=== PATIENT | female | born 1935 | race Caucasian/White ===

== ENCOUNTER 2019-08-29 14:46 | Outpatient (CLI) | payer MEDICARE, BC, SELFPAY ==
--- NOTE | ~2019-08-29 | XR_ITS ---
EXAMINATION: XR shoulder RT min 2V DATE: 08/29/2019 15:23 INDICATION: Right shoulder pain. TECHNIQUE: 4 views of right shoulder were obtained. COMPARISON: None. FINDINGS: Bone alignment is normal. No fracture. There is mild osteoarthritis of glenohumeral joint a nd acromioclavicular joint. There is mild calcific tendinitis of the right rotator cuff. There is a l arge hiatal hernia. IMPRESSION: 1. Mild polyarticular osteoarthritis. 2. Mild calcific tendinitis of right rotator cuff. Reviewed, dictated and finalized at location A.
--- NOTE | ~2019-08-29 | XR_ITS ---
EXAMINATION: XR_CERV2-3V_CR EXAM DATE: 08/29/2019 15:23 INDICATION: Cervicalgia. TECHNIQUE: Cervical spine frontal, lateral, lateral swimmers, and open-mouth odontoid projections. There is no prior study for comparison. FINDINGS: There is mild to moderate cervical disc disease. There is overall moderate cervical arthro linda with some mid cervical neural foraminal stenosis probably mostly at C5-6 and 6-7. The odontoid process is intact. The lateral masses of C1 line up with C2. Prevertebral soft tissue and pre-dens s pace are within normal limits. The vertebral bodies are aligned in the AP dimension. Lung apices unre markable. IMPRESSION: 1. Moderate cervical arthropathy. 2. Mild to moderate disc disease. Reviewed, dictated and finalized at location A.
== END 2019-08-29 14:47 | disposition home or self-care (01) ==
PROVIDERS: PCP Internal Medicine; Visit Provider Internal Medicine
DX: M19.011 Primary osteoarthritis, right shoulder (principal); M50.320 Other cervical disc degeneration, mid-cervical region, unspecified level
CPT/HCPCS: 72040; 73030

== ENCOUNTER 2019-11-13 14:30 | Outpatient (RCR) | payer MEDICARE, BC, SELFPAY ==
[2019-09-17 14:21] VITALS: BP_SYST 160
--- NOTE | 2019-09-17 15:30 | PTOPEVAL ---
Thank you for referring Arleen Patterson to [facility] [place]. Please review, sign, date and return this plan of care JOHN. Arleen was seen for her initial PT evaluation to address her right shoulder and neck impairments. She demonstrates limitations with motion, strength, pain and performance with daily activities. She requires additional skilled PT 2x/wk x 8 wk to improve impairments. I agree with and certify that the following plan of care is medically necessary. Referring Physician Date Attending Provider: DO Cynthia SidhuPT Outpatient Evaluation Start: 09/17/19 14:22 Freq: Status: Active Protocol: Document 09/17/19 14:21 SHANDA (Rec: 09/17/19 15:00 SHANDA [id number]) Therapy Assessment Status Assessment Status Assessment Status Evaluation Outpatient Past Medical History Past Medical History Source of Past Medical History Patient,Recalled from Previous Visit, Confirmed with Patient /Family Neurological History Hx Neurological Disorders No Significant History Cardiovascular History Hx Hypertension Yes Gastrointestinal History Hx Gastroesophageal Reflux Disease Yes Genitourinary History Hx Genitourinary Disorders No Significant History Musculoskeletal History Hx Back Pain Yes Hx Degenerative Disk Disease Yes Hx Orthopedic Surgery Yes: low back surgery for discectomy 18 years ago, then 2-3 years Evaluation Information Problem Diagnosis neck pain, shoulder pain Onset 06/07 Cause lifting Additional Evaluation Detail x-ray shows OA of cervical and shoulder joint Subjective Information She was having to assist her Query Text:As Reported By Patient/ with transfers more Family causing her to use her UE more . She started to notice the pain after May 2019. She reports difficulty with reaching overhead or behind her back. 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 She denies problems with carrying objects. She is limited with yard due to pain and fatigue. Reports the neck is painful with motions. The pain will wake her at night. States difficulty turning head with driving. She has increased back pain when lying on back. She sleeps on her side.
--- NOTE | 2019-10-03 14:50 | PCPTNOTE ---
Patient did not show up for scheduled appointment this date.
--- NOTE | 2019-10-17 11:00 | PCPTNOTE ---
Patient called & cancelled scheduled appointment this date due to reason unknown.
--- NOTE | 2019-10-29 15:40 | PTOPEVAL ---
Thank you for referring Arleen Patterson to [facility]. Please review, sign, date and return this plan of care JOHN. Pt has received 6 therapy visits to address neck and UE impairments. She is progressing towards her therapy goals with improved pain, improve range, improved strength and decreased soft tissue restrictions. She requires additional PT 1x/wk x 4 wk to achieve maximal benefits. I agree with and certify that the following plan of care is medically necessary. Referring Physician Date Admitting Provider: Attending Provider: Rylan Santamaria DO PT re-evaluation update *PT Outpatient Evaluation Start: 09/17/19 14:22 Freq: Status: Active Protocol: Document 10/29/19 14:49 SHANDA (Rec: 10/29/19 15:07 SHANDA [id number]) Therapy Assessment Status Assessment Status Assessment Status Re-evaluation Evaluation Information Problem Diagnosis neck pain, shoulder pain Onset 06/07 Cause lifting Additional Evaluation Detail x-ray shows OA of cervical and shoulder joint Subjective Information Reports improved ability to Query Text:As Reported By Patient/ turn her head to right, but Family cont restrictions to the left. she has trouble turning her head for driving. She reports improved ability wiith reaching overhead or behind her back. Denies any pain in her UE at this time. She is performing yard work with increased back pain. Pain Assessment Timing of Pain Assessment Timing of Pain Assessment Re-assessment Pain Scale Pain Scale Used Numeric (1 - 10) Self Report Pain Assessment Posterior Neck Reported Pain Level 0 Pain Description Aching,Pulling,Tightness Pain Frequency Intermittent Lowest Pain Intensity 0 Greatest Pain Intensity 6 Pain Aggravating Factors Exercise/Activity,Other Pain Aggravating Factors Other Pain Aggravating Factors neck motions Pain Behaviors Anxious Right Shoulder(s) Reported Pain Level 0 Lowest Pain Intensity 0 Greatest Pain Intensity 0 Pain Score Pain Score 0,0: Self Report Cervical and Lumbar ROM Cervical ROM Cervical Flexion (0-60) 70 Query Text:Active in Degrees Cervical Extension (0-70) 55 Query Text:Active in Degrees Cervical Lateral Flexion Right (0-50) 20 Query Text:Active in Degrees Cervical Lateral Flexion Left (0-50) 20 Query Text:Active in Degrees Cervical Rotation Ri
--- NOTE | 2019-11-19 14:33 | PCPTNOTE ---
Patient called & cancelled scheduled next scheduled appointment due to dentist appointment. She requested not to reschedule a follow up with at this time. Will hold chart open for 2 weeks, then DC if not rescheduled.
--- NOTE | 2019-12-07 12:24 | PCPTNOTE ---
Admitting Provider: Attending Provider: Rylan Santamaria DO Patient:Arleen Patterson Date of :1935 Discharge Note Patient has not returned for any further treatments since 11/13/2019, therefore she will be discharged at this time. Patient?s initial visit was on 09/17/2019 14:15 and she had a total of 8 visits. The goals have been been met due to patient did not return for her reassessment. Thank you for referring this patient to [facility]. Please review, sign, date and return this discharge summary JOHN. I have been updated about the patient's current status and I agree with discharge from the above service at this time. Referring Physician Date
== END 2019-12-07 14:07 | disposition home or self-care (01) ==
LOC: ANHPT 14:30
PROVIDERS: PCP Internal Medicine; Visit Provider Internal Medicine
DX: M54.2 Cervicalgia (principal); M25.511 Pain in right shoulder
CPT/HCPCS: 97014; 97110; 97140; 97162; G0283

== ENCOUNTER 2019-12-20 11:07 | Outpatient (CLI) | payer MEDICARE, BC, SELFPAY ==
[2019-12-20 12:11] LABS: Anion Gap 6 mmol/L (8-16); Blood Urea Nitrogen 27 mg/dL (7-17); Calcium 9.6 mg/dL (8.4-10.2); Carbon Dioxide 27 mmol/L (22-30); Chloride 104 mmol/L (98-107); Estimated Glomerular Filt Rate 53; Glucose 95 mg/dL (65-105); Potassium 4.2 mmol/L (3.4-5.0); Sodium 137 mmol/L (137-145)
[2019-12-20 12:49] LABS: Vitamin D 25 Hydroxy 85.6 ng/mL
== END 2019-12-20 11:08 | disposition home or self-care (01) ==
LOC: ANHLAB 11:09
PROVIDERS: PCP Internal Medicine; Visit Provider Internal Medicine
DX: I10 Essential (primary) hypertension (principal); E55.9 Vitamin D deficiency, unspecified
CPT/HCPCS: 36415; 80048; 82306

== ENCOUNTER 2020-08-27 11:23 | Outpatient (CLI) | payer MEDICARE, BC, SELFPAY ==
[2020-08-27 11:55] LABS: Hematocrit 37.1 % (37.0-47.0); Hemoglobin 11.9 g/dL (12.0-15.0); Mean Corpuscular HGB Conc 32.1 g/dl (32-36); Mean Corpuscular Volume 93.5 fl (80-100); Mean Platelet Volume 11.1 fl (7.4-10.4); Platelet Count Result 274 k/mm3 (150-375); Red Blood Count 3.97 M/mm3 (4.2-5.4); Red Cell Distribution Width 13.7 % (11.5-14.5); White Blood Count 6.9 K/mm3 (4.5-10.0)
[2020-08-27 12:04] LABS: Alanine Aminotransferase 12 U/L (4-35); Albumin Level 4.2 g/dL (3.5-5.1); Alkaline Phosphatase 60 U/L (38-126); Anion Gap 3 mmol/L (8-16); Aspartate Amino Transferase 22 U/L (14-36); Bilirubin,Total 0.4 mg/dL (0.2-1.3); Blood Urea Nitrogen 22 mg/dL (7-17); Calcium 9.5 mg/dL (8.4-10.2); Carbon Dioxide 31 mmol/L (22-30); Chloride 105 mmol/L (98-107); Estimated Glomerular Filt Rate 60; Glucose 98 mg/dL (65-105); Sodium 139 mmol/L (137-145)
== END 2020-08-27 11:24 | disposition home or self-care (01) ==
PROVIDERS: PCP Internal Medicine; Visit Provider Nurse Practitioner
DX: R53.83 Other fatigue (principal); I10 Essential (primary) hypertension
CPT/HCPCS: 36415; 80053; 85027

== ENCOUNTER 2020-12-13 17:41 | Emergency (ER) | payer MEDICARE, BC, SELFPAY ==
[2020-12-13 17:46] VITALS: BP 155/88; PULSE 124; RESP 20; TEMP 36.3; O2SAT 100
--- NOTE | 2020-12-13 18:34 | ED.ALLEREA ---
HPI - Allergic Reaction General Chief complaint: Allergic Reaction Stated complaint: attacked by yellow jackets Time Seen by Provider: 12/13/20 17:58 Source: patient Mode of arrival: ambulatory Limitations: no limitations History of Present Illness HPI narrative: Patient is an 85-year-old female complaining of being stung by multiple yellow jackets while trying to clean underneath her deck. Patient states that wherever she was stung feels like it is burning, my skin is burning . Patient denies any lip, tongue or throat swelling. Patient denies any shortness of breath or chest pain. Patient denies being allergic to bees or wasps. Related Data Allergies Allergy/AdvReac Type Severity Reaction Status Date / Time levofloxacin Allergy Unknown hives Verified 12/13/20 17:51 metronidazole Allergy Unknown rash Verified 12/13/20 17:51 Review of Systems Review of Systems: All systems reviewed & are unremarkable except as noted in HPI and below Constitutional: Constitutional: Denies body ache(s), Denies chills, Denies excessive sweating, Denies fatigue, Denies fever(s), Denies headache(s), Denies lethargy, Denies malaise, Denies weakness and Denies weight loss Eyes: Eyes: Denies blurry vision, Denies change in vision and Denies loss of vision ENT: Denies dizziness, Denies ear discharge, Denies headache(s), Denies lip swelling, Denies epistaxis, Denies nasal congestion, Denies neck pain, Denies throat swelling and Denies tongue swelling Cardiovascular: Cardiovascular: Denies chest pain, Denies chest pain at rest, Denies chest pain with activity, Denies diaphoresis, Denies rapid heart rate, Denies edema, Denies irregular heart rhythm, Denies lightheadedness, Denies palpitations, Denies dyspnea and Denies dyspnea on exertion Respiratory: Respiratory: Denies chest congestion, Denies cough, Denies hemoptysis, Denies dyspnea and Denies dyspnea on exertion Gastrointestinal: Gastrointestinal: Denies abdominal pain, Denies melena, Denies hematochezia, Denies diarrhea, Denies nausea, Denies vomiting and Denies hematemesis Musculoskeletal: Musculoskeletal: Denies abnormal gait, Denies deformity, Denies joint swelling, Denies limited range of motion, Denies neck pain and Denies numbness Neurologic: Denies Abnormal speech present, Denies abnormal gait, Denies confusion, Denies dizziness, Denies headache(s), Denies focal weakness, Denies loss of vision, Denies numbness, Denies Other visual disturbances, Denies Sensory deficit (Neuro) and Denies weakness Psychiatric: Psychiatric: Denies confusion, Denies depression, Denies auditory hallucinations, Denies homicidal ideation and Denies suicidal ideation Endocrine: Endocrine: Denies cold intolerance, Denies excessive sweating, Denies fatigue, Denies heat intolerance and Denies palpitations Hematologic/Lymphatic: Hematologic/Lymphatic: Denies easy bleeding and Denies easy bruising Allergic/Immunologic: Allergic/Immunologic: Denies lip swelling, Denies throat swelling and Denies tongue swelling PMFSH Past Medical History Medical History Chronic low back pain Essential (primary) hypertension Gastroesophageal reflux disease Iron deficiency anemia Vitamin D deficiency Family History Family History Sibling Patient's sister is in good health Family history of alcoholism Family history of chronic obstructive pulmonary disease Patient's brother is Mother Patient's mother is Father Patient's father is Social History Social History Smoking status: Never smoker Alcohol intake: never Exam Const: General: cooperative, healthy appearing, comfortable, no acute distress, well developed, alert and awake; No confusion Orientation/consciousness: oriented to person, oriented to place, orient
[2020-12-13 18:45] VITALS: BP 164/83; PULSE 94; RESP 20; O2SAT 99
[2020-12-13] MEDS: diphenhydrAMINE HCl INJ 50 MG/ML VIAL 25 MG IV PUSH (18:45)
[2020-12-13] MEDS: FAMOTIDINE 20 MG/2 ML VIAL IV PUSH (18:45)
[2020-12-13] MEDS: methylPREDNISolone SOD SUCC 125 MG VIAL 80 MG IV PUSH (18:45)
[2020-12-13 19:16] VITALS: BP 175/88; PULSE 94; RESP 18; O2SAT 99
[2020-12-13] MEDS: HYDROmorphone HCL INJ (*CRX) 1 MG/ML SYR 0.5 MG IV PUSH (19:42)
[2020-12-13] MEDS: HYDROcodone/acetaminophen (*CRX) 5-325 MG TABLET 1 TAB PO (19:44)
[2020-12-13 20:21] VITALS: BP 181/89; PULSE 89; RESP 15; O2SAT 98
[2020-12-13 20:58] VITALS: BP 165/94; PULSE 95; RESP 16; O2SAT 96
== END 2020-12-13 21:00 | disposition home or self-care (01) ==
PROVIDERS: Emergency Provider Emergency Medicine; PCP Internal Medicine
DX: T63.461A Toxic effect of venom of wasps, accidental (unintentional), initial encounter (principal); I10 Essential (primary) hypertension; K21.9 Gastro-esophageal reflux disease without esophagitis; E55.9 Vitamin D deficiency, unspecified; D50.9 Iron deficiency anemia, unspecified
CPT/HCPCS: 96374; 96375; 99284; A9270; J1170; J1200; J2930

== ENCOUNTER 2021-03-03 15:19 | Outpatient (CLI) | payer MEDICARE, BC, SELFPAY ==
[2021-03-03 16:18] LABS: Anion Gap 9 mmol/L (8-16); Blood Urea Nitrogen 22 mg/dL (7-17); Calcium 9.3 mg/dL (8.4-10.2); Carbon Dioxide 26 mmol/L (22-30); Chloride 103 mmol/L (98-107); Estimated Glomerular Filt Rate > 60; Glucose 135 mg/dL (65-110); Potassium 3.9 mmol/L (3.4-5.0); Sodium 138 mmol/L (137-145)
[2021-03-03 16:32] LABS: Vitamin D 25 Hydroxy 43.3 ng/mL
== END 2021-03-03 15:20 | disposition home or self-care (01) ==
LOC: ANHLAB 15:20
PROVIDERS: PCP Internal Medicine; Visit Provider Internal Medicine
DX: E55.9 Vitamin D deficiency, unspecified (principal); R53.83 Other fatigue; I10 Essential (primary) hypertension
CPT/HCPCS: 36415; 80048; 82306; 84443

== ENCOUNTER → 2021-04-17 01:26 | Outpatient (CLI) | payer MEDICARE, BC, SELFPAY ==
[2021-04-17 14:23] LABS: Influenza Control Positive
[2021-04-17 20:43] LABS: SARS-CoV-2 RNA PCR Positive
== END ==
PROVIDERS: PCP Internal Medicine; Visit Provider Internal Medicine
DX: R68.89 Other general symptoms and signs (principal); J06.9 Acute upper respiratory infection, unspecified; U07.1 COVID-19
CPT/HCPCS: 87804; C9803; U0003; U0005

== ENCOUNTER 2021-04-20 11:23 | Outpatient (RCR) | payer MEDICARE, BC, SELFPAY ==
[2021-04-20 14:14] VITALS: BP 183/87; PULSE 104; RESP 24; TEMP 36.1; O2SAT 100
[2021-04-20] MEDS: ACETAMINOPHEN 325 MG TABLET 650 MG PO (14:17)
[2021-04-20] MEDS: diphenhydrAMINE HCl CAP 25 MG CAPSULE PO (14:17)
[2021-04-20] MEDS: FAMOTIDINE 20 MG TABLET PO (14:17)
[2021-04-20 15:43] VITALS: BP 149/64; PULSE 75; O2SAT 100
== END 2021-04-20 17:00 ==
LOC: AMCINF 11:23
PROVIDERS: PCP Internal Medicine; Visit Provider Internal Medicine Hematology & Oncology
DX: U07.1 COVID-19 (principal); I10 Essential (primary) hypertension
CPT/HCPCS: A9270; M0247

== ENCOUNTER 2021-08-11 14:14 | Outpatient (CLI) | payer MEDICARE, BC, SELFPAY ==
--- NOTE | ~2021-08-11 | XR_ITS ---
EXAMINATION:XR_CERV2-3V_CR DATE: 08/11/2021 14:37 INDICATION: Right-sided neck pain TECHNIQUE: AP, lateral, and odontoid views of the cervical spine are provided. COMPARISON: 08/29/2019 FINDINGS: Alignment is normal. The odontoid is intact. No fracture is identified. The vertebral body heights are normal. There is mild loss of intervertebral disc space height at C4-5 and C5-6. There is severe facet osteoarthritis throughout the cervical spine and moderate uncovertebral joint osteoarth ritis at C5-6 and C6-7. Prevertebral soft tissues are normal. IMPRESSION: 1. Moderate cervical spondylosis without acute findings or significant interval change. Reviewed, dictated and finalized at location F.
== END 2021-08-11 14:15 | disposition home or self-care (01) ==
LOC: ANHIMG 14:17
PROVIDERS: PCP Internal Medicine; Visit Provider Nurse Practitioner
DX: M54.2 Cervicalgia (principal); M47.812 Spondylosis without myelopathy or radiculopathy, cervical region
CPT/HCPCS: 72040

== ENCOUNTER 2022-03-10 09:24 | Outpatient (CLI) | payer MEDICARE, BC, SELFPAY ==
[2022-03-10 09:57] LABS: Anion Gap 11 mmol/L (8-16); Blood Urea Nitrogen 23 mg/dL (7-17); Calcium 9.2 mg/dL (8.4-10.2); Carbon Dioxide 23 mmol/L (22-30); Chloride 107 mmol/L (98-107); Estimated Glomerular Filt Rate 59; Glucose 110 mg/dL (65-110); Potassium 3.8 mmol/L (3.4-5.0); Sodium 141 mmol/L (137-145)
[2022-03-10 10:14] LABS: Vitamin D 25 Hydroxy 44.9 ng/mL
== END 2022-03-10 09:25 | disposition home or self-care (01) ==
LOC: ANHLAB 09:26
PROVIDERS: PCP Internal Medicine; Visit Provider Internal Medicine
DX: E55.9 Vitamin D deficiency, unspecified (principal); I10 Essential (primary) hypertension
CPT/HCPCS: 36415; 80048; 82306

== ENCOUNTER 2022-04-18 10:13 | Emergency (ER) | payer MEDICARE, BC, SELFPAY ==
[2022-04-18 10:39] VITALS: BP 156/75; PULSE 88; RESP 16; TEMP 36.2; O2SAT 98
--- NOTE | 2022-04-18 11:16 | ED.EAR ---
HPI - Ear Problem General Chief complaint: Ear Stated complaint: Right Ear Irritation Time Seen by Provider: 04/18/22 11:16 Source: patient, RN notes reviewed and old records reviewed Mode of arrival: ambulatory Limitations: no limitations History of Present Illness HPI Narrative: 86-year-old female presents to the [facility] with right ear discomfort for 1 week. Patient states since Thanksgiving over a month she has had upper respiratory congestion. First week in March was treated with a steroid, nasal spray and an antibiotic for an ear infection, same ear as today. Denies any fevers. States when she changes positions quickly she sometimes has some dizziness but no is syncopal episodes. States that she has been using her Flonase daily Related Data Allergies Allergy/AdvReac Type Severity Reaction Status Date / Time levofloxacin Allergy Unknown hives Verified 04/18/22 10:46 metronidazole Allergy Unknown rash Verified 04/18/22 10:46 Review of Systems Review of Systems: All systems reviewed & are unremarkable except as noted in HPI and below Constitutional: Constitutional: Reports no additional constitutional complaints Eyes: Eyes: Reports no additional eye complaints ENT: Reports as per HPI, Reports otalgia (right) and Reports nasal congestion Cardiovascular: Cardiovascular: Reports no additional cardiovascular complaints, Denies chest pain and Denies dyspnea Respiratory: Respiratory: Reports no additional respiratory complaints, Denies chest congestion, Denies cough and Denies dyspnea Gastrointestinal: Gastrointestinal: Reports no additional gastrointestinal complaints, Denies abdominal pain, Denies nausea and Denies vomiting Musculoskeletal: Musculoskeletal: Reports no additional musculoskeletal complaints Integumentary/Breasts: Skin/Breast: Reports system reviewed and no additional complaints, except as docu Neurologic: Reports system reviewed and no additional complaints, except as documented Psychiatric: Psychiatric: Reports no additional psychiatric complaints Allergic/Immunologic: Allergic/Immunologic: Reports no additional allergic/immunologic complaints [facility] Past Medical History Medical History Chronic low back pain Essential (primary) hypertension Gastroesophageal reflux disease Iron deficiency anemia Vitamin D deficiency Family History Family History Sibling Patient's sister is in good health Family history of alcoholism Family history of chronic obstructive pulmonary disease Patient's brother is Mother Patient's mother is Father Patient's father is Social History Social History Smoking status: Never smoker Second hand tobacco smoke exposure: No Alcohol intake: never Substance use: never Substance use type: does not use Lack of Transportation: No Lack of Food: Never True Current Housing: I Have Housing Concerned About Future Housing: No Difficulty Paying Gas/Electric Bills: No Difficulty Paying for Meds: No Currently Unemployed: No Education: Trade/Vocational Certificate Difficulty w/ Childcare or Family Care: No Comments At the time of my signature, I reviewed and agree with the nursing past medical, surgical, social, and family history. There is no relevant family history pertinent to the patient complaint. Exam Const: General: cooperative, healthy appearing, comfortable, no acute distress, well developed, alert and well nourished Nutritional Appearance: well nourished Orientation/consciousness: patient oriented x3 Limitations: no limitations HENMT: Head: normal to inspection Ears: hearing grossly normal bilaterally, external ears normal, EAC's normal and TM abnormal bulging on the right and erythematous on the right Face/Nose/Sinus: Normal e
== END 2022-04-18 11:40 | disposition home or self-care (01) ==
PROVIDERS: Emergency Provider Nurse Practitioner; PCP Internal Medicine
DX: H66.91 Otitis media, unspecified, right ear (principal); I10 Essential (primary) hypertension; K21.9 Gastro-esophageal reflux disease without esophagitis
CPT/HCPCS: 99213; G0463

== ENCOUNTER 2022-05-10 13:50 | Emergency (ER) | payer MEDICARE, BC, SELFPAY ==
--- NOTE | 2022-05-10 13:53 | ED.FEMALEGU ---
HPI - Female Genitourinary General Chief complaint: Urogenital-Female Stated complaint: UTI/ Ears Irritation Time Seen by Provider: 05/10/22 14:07 Source: patient, RN notes reviewed and old records reviewed Mode of arrival: ambulatory Limitations: no limitations History of Present Illness HPI Narrative: 86-year-old female presents to the [facility] with complaints of right ear pain that has continued since she was seen on the . Also complains of burning, urgency and frequency of urination. States this started a couple of days ago. Denies chest pain or abdominal pain. No nausea vomiting. Denies fevers MD elicited complaint: UTI Related Data Allergies Allergy/AdvReac Type Severity Reaction Status Date / Time levofloxacin Allergy Unknown hives Verified 05/10/22 13:57 metronidazole Allergy Unknown rash Verified 05/10/22 13:57 Review of Systems Review of Systems: All systems reviewed & are unremarkable except as noted in HPI and below Constitutional: Constitutional: Reports no additional constitutional complaints Eyes: Eyes: Reports no additional eye complaints ENT: Reports as per HPI Cardiovascular: Cardiovascular: Reports no additional cardiovascular complaints, Denies chest pain and Denies dyspnea Respiratory: Respiratory: Reports no additional respiratory complaints, Denies chest congestion, Denies cough and Denies dyspnea Gastrointestinal: Gastrointestinal: Reports no additional gastrointestinal complaints, Denies abdominal pain, Denies nausea and Denies vomiting Genitourinary: Genitourinary: Reports as per HPI and Reports dysuria Musculoskeletal: Musculoskeletal: Reports no additional musculoskeletal complaints Integumentary/Breasts: Skin/Breast: Reports system reviewed and no additional complaints, except as docu Neurologic: Reports system reviewed and no additional complaints, except as documented Psychiatric: Psychiatric: Reports no additional psychiatric complaints Allergic/Immunologic: Allergic/Immunologic: Reports no additional allergic/immunologic complaints [facility] Past Medical History Medical History Chronic low back pain Essential (primary) hypertension Gastroesophageal reflux disease Iron deficiency anemia Vitamin D deficiency Family History Family History Sibling Patient's sister is in good health Family history of alcoholism Family history of chronic obstructive pulmonary disease Patient's brother is Mother Patient's mother is Father Patient's father is Social History Social History (Reviewed 01/24/23 @ 10:09 by ABDELRAHMAN Bowden Smoking status: Never smoker Second hand tobacco smoke exposure: No Alcohol intake: never Substance use: never Substance use type: does not use Lack of Transportation: No Lack of Food: Never True Current Housing: I Have Housing Concerned About Future Housing: No Difficulty Paying Gas/Electric Bills: No Difficulty Paying for Meds: No Currently Unemployed: No Education: Trade/Vocational Certificate Difficulty w/ Childcare or Family Care: No Comments At the time of my signature, I reviewed and agree with the nursing past medical, surgical, social, and family history. There is no relevant family history pertinent to the patient complaint. Exam Const: General: cooperative, healthy appearing, comfortable, no acute distress, well developed, alert and well nourished Nutritional Appearance: well nourished Orientation/consciousness: patient oriented x3 Limitations: no limitations HENMT: Head: normal to inspection Ears: hearing grossly normal bilaterally, external ears normal and TM abnormal with fluid behind the TM bilateral; not erythematous Face/Nose/Sinus: Normal external nose present, Normal nares present, Normal nasal mucous membranes and turbinates present and n
[2022-05-10 14:08] VITALS: BP 157/93; PULSE 107; RESP 16; TEMP 36.2; O2SAT 99
== END 2022-05-10 14:34 | disposition home or self-care (01) ==
PROVIDERS: Emergency Provider Nurse Practitioner; PCP Internal Medicine
DX: N39.0 Urinary tract infection, site not specified (principal); H65.03 Acute serous otitis media, bilateral; I10 Essential (primary) hypertension; K21.9 Gastro-esophageal reflux disease without esophagitis
CPT/HCPCS: 81003; 87077; 87086; 87186; 99213; G0463

== ENCOUNTER 2022-07-19 09:48 | Outpatient (CLI) | payer MEDICARE, BC, SELFPAY ==
[2022-07-19 10:25] LABS: Basophils Absolute Auto 0.1 K/mm3 (0.0-0.1); Basophils Percent Auto 1.3 % (0.2-1.2); Eosinophils Absolute Auto 0.2 K/mm3 (0-0.3); Eosinophils Percent Auto 2.5 % (0-4.4); Hematocrit 41.2 % (37.0-47.0); Hemoglobin 13.1 g/dL (12.0-15.0); Immature Granulocyte Absolute 0.02 K/mm3 (0.00-0.031); Immature Granulocyte Percent A 0.3 % (0-0.5); Lymphocytes Absolute Auto 2.13 K/mm3 (0.9-3.2); Lymphocytes Percent Auto 33.4 % (18.3-44.2); Mean Corpuscular HGB Conc 31.8 g/dl (32-36); Mean Corpuscular Hemoglobin 31.1 pg (26-34); Mean Corpuscular Volume 97.9 fl (80-100); Mean Platelet Volume 10.6 fl (7.4-10.4); Monocytes Absolute Auto 0.6 K/mm3 (0.1-0.6); Monocytes Percent Auto 8.8 % (2.6-8.5); Neutrophils Absolute Auto 3.4 K/mm3 (1.3-6.7); Neutrophils Percent Auto 53.7 % (45.5-73.1); Platelet Count Result 252 k/mm3 (150-375); Red Blood Count 4.21 M/mm3 (4.2-5.4); Red Cell Distribution Width 14.1 % (11.5-14.5); White Blood Count 6.4 K/mm3 (4.5-10.0)
[2022-07-19 10:36] LABS: Alanine Aminotransferase 18 U/L (6-35); Albumin Level 4.4 g/dL (3.5-5.1); Alkaline Phosphatase 61 U/L (38-126); Anion Gap 5 mmol/L (8-16); Aspartate Amino Transferase 22 U/L (14-36); Bilirubin,Total 0.5 mg/dL (0.2-1.3); Blood Urea Nitrogen 17 mg/dL (7-17); Calcium 9.3 mg/dL (8.4-10.2); Carbon Dioxide 30 mmol/L (22-30); Chloride 107 mmol/L (98-107); Estimated Glomerular Filt Rate 59; Glucose 104 mg/dL (65-110); Potassium 4.1 mmol/L (3.4-5.0); Sodium 142 mmol/L (137-145)
[2022-07-19 10:49] LABS: NT Pro B Type Natriuretic Pept 420 pg/mL (19.9-100)
== END 2022-07-19 09:49 | disposition home or self-care (01) ==
PROVIDERS: PCP Internal Medicine; Visit Provider Nurse Practitioner Family
DX: R06.02 Shortness of breath (principal); I10 Essential (primary) hypertension; R53.83 Other fatigue
CPT/HCPCS: 36415; 80053; 83880; 84443; 85025

== ENCOUNTER 2022-08-06 12:39 | Outpatient (CLI) | payer MEDICARE, BC, SELFPAY ==
--- NOTE | ~2022-08-06 | XR_ITS ---
XR chest 2V 08/06/2022 14:05 Indication: Shortness of breath Procedure: 2 view chest Comparison: 08/06/2012 Findings: Large hiatal hernia. Cardiomegaly. No focal air space disease, pulmonary edema, pleural eff usion or suspected pneumothorax. Impression: 1: No acute cardiopulmonary disease. 2: Large hiatal hernia. Reviewed, dictated and finalized at location A. Impression: 1: No acute cardiopulmonary disease. 2: Large hiatal hernia.
--- NOTE | 2022-08-09 13:01 | P.PCNPFT_ITS ---
PFT Procedure Performed PFT Procedure Performed Spirometry with Pre/Post Bronchodilator Plethysmography (Lung Vol) Diffusing Cap (DLCO) Flow Vol Loop PFT Interpretation This is a pulmonary function test with pre and post-bronchodilator spirometry, plethysmography and diffusing capacity. The test was performed and results interpreted in accordance with the 2019 and 2005 ATS/ERS Task Force guidelines respectively using the Global Lung Function Initiative-2012 reference equations. Patient demonstrated good effort and cooperation. Reproducibility criteria were met. The quality of the pre bronchodilator spirometry maneuver was Grade A and post bronchodilator spirometry maneuver was Grade A. Findings: Spirometry: There is decreased maximal expiratory airflow at low lung volumes. The contour the inspiratory flow tracing is normal. The pre bronchodilator FVC is 1.33 L, 59% predicted. The pre bronchodilator FEV1 is 0.89 L, 52% predicted. The pre bronchodilator FEV1: FVC ratio is 67%. The post bronchodilator FVC is 1.30 L, representing a 2% decrease. The post bronchodilator FEV1 is 0.94 L, r epresenting a 5% increase. The post bronchodilator FEV1: FVC ratio 72%. Plethysmography: The total lung capacity is 3.35 L, 71% predicted. Functional residual capacity is 2.44 L, 90% predicted. The residual volume is 2.02 L, 86% predicted. Diffusion capacity: The diffusing capacity unadjusted for hemoglobin and carboxyhemoglobin stent 10.2, 56% predicted. The diffusing capacity adjusted for alveolar volume is 4.64, 112% predicted. Impression: There is a combined obstructive and restrictive ventilatory abnormality. There are no guidelines to assign the severity of obstruction and restriction with a combined abnormality. In my opinion, given the moderately concave expiratory flow tracing and mildly decreased FEV1: FVC ratio and mild restrictive abnormality I would state there is a moderate obstructive abnormality and a mild restrictive abnormality resulting in a moderately severe decreased in the FEV1. There is no significant improvement after inhaling a single dose of albuterol. The diffusing capacity unadjusted for hemoglobin and carboxyhemoglobin is moderately decreased and normalizes when adjusted for alveolar volume. There are no prior studies for comparison
== END 2022-08-06 12:40 | disposition home or self-care (01) ==
PROVIDERS: PCP Family Medicine; Visit Provider Nurse Practitioner Family
DX: R06.02 Shortness of breath (principal); R94.2 Abnormal results of pulmonary function studies; K44.9 Diaphragmatic hernia without obstruction or gangrene
CPT/HCPCS: 71046; 94060; 94726; 94729

== ENCOUNTER 2022-10-03 19:51 | Emergency (ER) | payer MEDICARE, BC, SELFPAY ==
[2022-10-03] VITALS (8 sets, daily range): BP systolic 168–227; BP diastolic 65–99; PULSE 96–122; RESP 17–22; TEMP 36.4; O2SAT 91–99
--- NOTE | ~2022-10-03 | CT_ITS ---
CT of the Abdomen and Pelvis: Indication: Abdominal pain Technique: 2.5 mm axial scans were obtained through the abdomen and pelvis following intravenous adm inistration of 100 cc of Omnipaque 350. Dose reduction technique was used on this scan by utilizing a utomated exposure control and iterative reconstruction technique. The dose-length product (DLP) was 3 26.65 mGy-cm. COMPARISON: 09/17/2015 Findings: Scans through the lung bases demonstrate large hiatal hernia, containing essentially the e ntire stomach, with organoaxial volvulus. The liver, spleen, pancreas, gallbladder, and kidneys are within normal limits. Bilateral adrenal nod ules are similar to prior exam. There are atherosclerotic calcifications of the aorta. No lymphadeno linda. No bowel obstruction or bowel wall thickening. There is no evidence to suggest acute appendicitis. Images through the pelvis were performed. Urinary bladder unremarkable. No adnexal mass evident. No a scites. Impression: Large hiatal hernia containing the entire stomach, with organoaxial volvulus. Stable adrenal nodule since 2015. Stability over this time interval is compatible with benignity. Reviewed, dictated and finalized at location . Impression: Large hiatal hernia containing the entire stomach, with organoaxial volvulus. Stable adrenal nodule since 2015. Stability over this time interval is compatib le with benignity.
--- NOTE | 2022-10-03 20:05 | ECG_ITS ---
Measurements Intervals [place] Rate: 112 P: 42 CT: 150 QRS: -30 QRSD: 97 T: 99 QT: 310 QTc: 425 Interpretive Statements SINUS TACHYCARDIA LEFT ATRIAL ENLARGEMENT [-0.15mV P WAVE IN V1/V2] POSSIBLE LEFT VENTRICULAR HYPERTROPHY [VOLTAGE CRITERIA PLUS LAE OR QRS WIDENING] INFERIOR MYOCARDIAL INFARCTION , PROBABLY OLD [40+ ms Q WAVE AND/OR ST/T ABNORMALITY IN II/aVF] ABNORMAL ECG NO PREVIOUS ECG AVAILABLE FOR COMPARISON Electronically Signed On 10-04-2022 15:44:44 CDT by Sebastian Jesus M.D.
[2022-10-03 20:50] LABS: Basophils Absolute Auto 0.1 K/mm3 (0.0-0.1); Basophils Percent Auto 0.7 % (0.2-1.2); Eosinophils Absolute Auto 0.1 K/mm3 (0-0.3); Eosinophils Percent Auto 1.1 % (0-4.4); Hematocrit 40.4 % (37.0-47.0); Immature Granulocyte Absolute 0.03 K/mm3 (0.00-0.031); Immature Granulocyte Percent A 0.3 % (0-0.5); Lymphocytes Percent Auto 18.9 % (18.3-44.2); Mean Corpuscular HGB Conc 32.2 g/dl (32-36); Mean Corpuscular Volume 96.4 fl (80-100); Mean Platelet Volume 10.3 fl (7.4-10.4); Monocytes Absolute Auto 0.6 K/mm3 (0.1-0.6); Monocytes Percent Auto 6.6 % (2.6-8.5); Neutrophils Absolute Auto 6.5 K/mm3 (1.3-6.7); Neutrophils Percent Auto 72.4 % (45.5-73.1); Platelet Count Result 261 k/mm3 (150-375); Red Blood Count 4.19 M/mm3 (4.2-5.4); Red Cell Distribution Width 14.3 % (11.5-14.5)
[2022-10-03] MEDS: ONDANSETRON INJ 4 MG/2 ML VIAL IV PUSH (21:03)
[2022-10-03 21:15] LABS: Alanine Aminotransferase 18 U/L (6-35); Albumin Level 4.4 g/dL (3.5-5.1); Alkaline Phosphatase 83 U/L (38-126); Anion Gap 5 mmol/L (8-16); Aspartate Amino Transferase 25 U/L (14-36); Blood Urea Nitrogen 21 mg/dL (7-17); Calcium 9.5 mg/dL (8.4-10.2); Carbon Dioxide 32 mmol/L (22-30); Chloride 104 mmol/L (98-107); Estimated CRCL calculation 40 ml/min; Estimated Glomerular Filt Rate > 60; Glucose 131 mg/dL (65-110); Lipase 168 U/L (23-300); Potassium 3.8 mmol/L (3.4-5.0); Sodium 141 mmol/L (137-145)
[2022-10-03 21:19] LABS: Bilirubin,Total 0.4 mg/dL (0.2-1.3)
[2022-10-03 21:37] LABS: Appearance Urine Clear (Clear); Bacteria Urine None Seen /hpf; Bilirubin Urine Negative (Negative); Blood Urine Negative (Negative); Color Urine Yellow (Yellow); Glucose Urine UA Negative (Negative); Ketones Urine Negative (Negative); Leukocyte Esterase Ur Negative LEU/UL (Negative); Nitrate Urine Negative (Negative); Non Pathogenic Casts 0-2; Protein Urine Trace mg/dL (Negative); RBC Urine 0-2 /hpf (0-2); Specific Grav Ur 1.013 (1.001-1.035); Squamous Epithelial Cell Urine None seen /hpf (Few); Urobilinogen Urine 0.2 mg/dL (<2.0); WBC Urine 0-5 /hpf; pH Urine 7.5 (5.0-9.0)
[2022-10-03 21:41] LABS: Add Urine Microscopic? YES
[2022-10-03] MEDS: BELLADONNA ALK/PHENOB ELIX 10 ML, MAG HYDROX/ALUMINUM HYD/SIMETH 30 ML, LIDOCAINE HCL 2... PO (22:07)
--- NOTE | 2022-10-03 22:16 | ED.ABDPAIN ---
HPI - Abdominal Pain General Chief Complaint: Abdominal Pain <Sal Walsh MD - Last Filed: 10/03/22 22:26> Stated Complaint: abd pain <Sal Walsh MD - Last Filed: 10/03/22 22:26> Time Seen by Provider: 10/03/22 20:24 <Sal Walsh MD - Last Filed: 10/03/22 22:26> History of Present Illness HPI narrative: 87-year-old female presented to the emergency department for evaluation of nausea vomiting and epigastric burning. <Sal Walsh MD - Last Filed: 10/03/22 22:26> Related Data Allergies/Adverse Reactions: Allergies Allergy/AdvReac Type Severity Reaction Status Date / Time levofloxacin Allergy Unknown hives Verified 10/03/22 20:01 metronidazole Allergy Unknown rash Verified 10/03/22 20:01 <Sal Walsh MD - Last Filed: 10/03/22 22:26> Review of Systems Review of Systems: All systems reviewed & are unremarkable except as noted in HPI and below <Sal Walsh MD - Last Filed: 10/03/22 22:26> [facility] Past Medical History Medical History: Medical History Chronic low back pain Essential (primary) hypertension Gastroesophageal reflux disease Iron deficiency anemia Vitamin D deficiency <Sal Walsh MD - Last Filed: 10/03/22 22:26> Family History Family History: Family History Sibling Patient's sister is in good health Family history of alcoholism Family history of chronic obstructive pulmonary disease Patient's brother is Mother Patient's mother is Father Patient's father is <Sal Walsh MD - Last Filed: 10/03/22 22:26> Social History Social History: Social History Smoking status: Never smoker Second hand tobacco smoke exposure: No Alcohol intake: never Substance use: never Substance use type: does not use Lack of Transportation: No Lack of Food: Never True Current Housing: I Have Housing Concerned About Future Housing: No Difficulty Paying Gas/Electric Bills: No Difficulty Paying for Meds: No Currently Unemployed: No Education: Trade/Vocational Certificate Difficulty w/ Childcare or Family Care: No <Sal Walsh MD - Last Filed: 10/03/22 22:26> Exam Narrative: APPEARANCE: Well appearing, no pain, no distress, well-nourished. HEAD: normocephalic, atraumatic. EYES: PERRLA/EOMI, conjunctivae clear. NOSE: Normal no drainage EARS:TMS clear with good light reflex. THROAT: Pharynx clear, no exudate. NECK: Supple. No adenopathy, no masses. RESPIRATORY: Airway patent, respirations nonlabored. Clear to auscultation bilaterally, no rales, rhonchi, wheezing. CARDIOVASCULAR: Regular rate and rhythm without murmurs rubs or gallops. ABDOMINAL: Soft, nontender, nondistended, normal bowel sounds MUSCULOSKELETAL: Moves all extremities. Strength/ROM intact, No edema, No calf tenderness. NEURO: Alert. Cranial nerves II through XII intact. Grossly intact <Sal Walsh MD - Last Filed: 10/03/22 22:26> Course Course Emergency Course: 87-year-old female presented emergency department for evaluation of epigastric burning after nausea vomiting. Patient was treated with a GI cocktail and Zofran. Patient is afebrile with no leukocytosis. Patient's CMP is no significant abnormalities and patient has normal AST ALT T. bili and alk phos. Patient's lipase is also not elevated. Patient's UA shows no evidence of infection. Patient had a CT scan to evaluate for alternate etiologies than gastroenteritis. At time of signout CT scan was pending. Patient was updated on the results of the work-up so far and anticipated disposition pending the CT scan result. All questions and concerns were addressed. Patient care was signed out to Dr. Najera <Sal Walsh MD - Last Filed: 10/03/22 22:26>
[2022-10-04] VITALS (43 sets, daily range): BP systolic 146–199; BP diastolic 50–96; PULSE 65–107; RESP 13–31; O2SAT 91–100
--- NOTE | 2022-10-04 03:45 | PC.NURSE ---
Spoke with Golden at [facility] transfer center for triage. Pt accepted to [facility]. Will call back with bed assignment.
--- NOTE | 2022-10-04 07:20 | PC.NURSE ---
Patient report received from NAT Eaton. All questions answered and care of patient assumed.
== END 2022-10-04 08:47 | disposition short-term general hospital (02) ==
PROVIDERS: Emergency Provider Emergency Medicine; PCP Family Medicine
DX: K31.89 Other diseases of stomach and duodenum (principal); K20.90 Esophagitis, unspecified without bleeding; R11.2 Nausea with vomiting, unspecified; I10 Essential (primary) hypertension; K21.9 Gastro-esophageal reflux disease without esophagitis; E55.9 Vitamin D deficiency, unspecified; D50.9 Iron deficiency anemia, unspecified; R94.31 Abnormal electrocardiogram [ECG] [EKG]; R00.0 Tachycardia, unspecified; K44.9 Diaphragmatic hernia without obstruction or gangrene; E27.8 Other specified disorders of adrenal gland
CPT/HCPCS: 36415; 74177; 80053; 81001; 83605; 83690; 85025; 93005; 96365; 96375; 99285; A9270; J0131; J2405; Q9967

== ENCOUNTER 2022-11-29 16:45 | Emergency (ER) | payer MEDICARE, BC, SELFPAY ==
[2022-11-29 16:56] VITALS: BP 153/73; PULSE 100; RESP 18; TEMP 36.6; O2SAT 99
--- NOTE | 2022-11-29 17:07 | ED.GENADULT ---
HPI - General Adult General Chief complaint: Extremity Injury, Upper Stated complaint: Right Arm Injury Time Seen by Provider: 11/29/22 17:07 Source: patient Mode of arrival: ambulatory Limitations: no limitations History of Present Illness HPI narrative: 87-year-old female presents for complaint of right forearm skin tear after injury 6 days ago. She states she fell in the garage and scraped the arm. Has been cleansing the site and applying neosporin and covering it with a bandaid. Reports the site is starting to hurt and has more redness. Denies numbness, tingling, weakness, or fever. Related Data Allergies Allergy/AdvReac Type Severity Reaction Status Date / Time levofloxacin Allergy Unknown hives Verified 10/20/22 12:15 metronidazole Allergy Unknown rash Verified 10/20/22 12:15 Review of Systems Review of Systems: CONSTITUTIONAL: Denies body aches, fever, chills, or sweats. EYES: Denies visual changes, redness, or discharge. ENT: Denies rhinorrhea, congestion CARDIOVASCULAR: Denies chest pain, palpitations, or edema. RESPIRATORY: Denies cough or dyspnea. GASTROINTESTINAL: Denies abdominal pain, nausea, vomiting, or diarrhea. SKIN: per HPI MUSCULOSKELETAL: Denies back pain, joint pain, or myalgia. NEUROLOGIC: Denies headache, numbness, tingling, or weakness. [facility] Past Medical History Medical History (Updated 11/29/22 @ 17:18 by Bertha Arriola APRN) Chronic low back pain Essential (primary) hypertension Gastroesophageal reflux disease Hiatal hernia Iron deficiency anemia Vitamin D deficiency Family History Family History Sibling Patient's sister is in good health Family history of alcoholism Family history of chronic obstructive pulmonary disease Patient's brother is Mother Patient's mother is Father Patient's father is Social History Social History Smoking status: Never smoker Second hand tobacco smoke exposure: No Alcohol intake: never Substance use: never Substance use type: does not use Lack of Transportation: No Lack of Food: Never True Current Housing: I Have Housing Concerned About Future Housing: No Difficulty Paying Gas/Electric Bills: No Difficulty Paying for Meds: No Currently Unemployed: No Education: Trade/Vocational Certificate Difficulty w/ Childcare or Family Care: No Comments At time of signature, I have reviewed and agree with nursing past medical, surgical, social and family history unless otherwise noted. Please see nursing chart for further information. There is no relevant family history pertinent to the presenting complaint Exam Narrative: GENERAL: Well-appearing HEAD: Normocephalic, atraumatic. EYES: conjunctivae clear, and EOMI. ENT: Mucous membranes moist. Oropharynx without edema, erythema or lesions. NECK: Supple. No lymphadenopathy CHEST: Clear to auscultation. HEART: Regular rate and rhythm. SKIN: Warm, dry. Right forearm dorsal surface with 4 cm x 2 cm skin avulsion, skin is dry/scabbed with yellow and pink wound bed, surrounding erythema. Site is tender. No streaking, fluctuance or induration. Normal strength and sensation, full ROM. Right anterior knee abrasion; left medial knee contusion. NEURO: Alert and oriented x3. Course Course Emergency Course: Patient is aware of diagnosis, understands and agrees to treatment plan. Anticipatory guidance given. Patient agrees to follow-up as directed and is aware of reasons to seek care at the emergency department. Portions of this record may have been created with voice recognition software Level of Care: Express Care Visit Vital Signs Vital signs: Vital Signs Temperature 97.9 F 11/29/22 16:56 Pulse Rate 100 11/29/22 16:56 Respiratory Rate 18 11/29/22 16:56 Blood Pressure 153/73 H 08
== END 2022-11-29 17:21 | disposition home or self-care (01) ==
PROVIDERS: Emergency Provider Nurse Practitioner Family; PCP Nurse Practitioner
DX: S51.801A Unspecified open wound of right forearm, initial encounter (principal); W19.XXXA Unspecified fall, initial encounter; I10 Essential (primary) hypertension; K21.9 Gastro-esophageal reflux disease without esophagitis
CPT/HCPCS: 99213; G0463

== ENCOUNTER 2023-06-10 13:45 | Outpatient (CLI) | payer MEDICARE, BC, SELFPAY ==
[2023-06-10 15:12] LABS: Alanine Aminotransferase 17 U/L (6-35); Albumin Level 4.3 g/dL (3.5-5.1); Alkaline Phosphatase 75 U/L (38-126); Anion Gap 10 mmol/L (8-16); Aspartate Amino Transferase 23 U/L (14-36); Bilirubin,Total 0.5 mg/dL (0.2-1.3); Blood Urea Nitrogen 27 mg/dL (7-17); Calcium 9.7 mg/dL (8.4-10.2); Carbon Dioxide 25 mmol/L (22-30); Chloride 104 mmol/L (98-107); Estimated Glomerular Filt Rate 47; Glucose 123 mg/dL (65-110); Potassium 4.3 mmol/L (3.4-5.0); Sodium 139 mmol/L (137-145)
[2023-06-10 18:15] LABS: Vitamin D 25 Hydroxy 34.3 ng/mL
== END 2023-06-10 13:46 | disposition home or self-care (01) ==
PROVIDERS: PCP Nurse Practitioner; Visit Provider Nurse Practitioner
DX: I10 Essential (primary) hypertension (principal); E55.9 Vitamin D deficiency, unspecified
CPT/HCPCS: 36415; 80053; 82306

== ENCOUNTER 2023-10-26 09:04 | Outpatient (CLI) | payer MEDICARE, BC, SELFPAY ==
[2023-10-26 09:46] LABS: Hematocrit 38.9 % (37.0-47.0); Hemoglobin 12.6 g/dL (12.0-15.0); Mean Corpuscular HGB Conc 32.4 g/dl (32-36); Mean Corpuscular Hemoglobin 31.2 pg (26-34); Mean Corpuscular Volume 96.3 fl (80-100); Mean Platelet Volume 10.8 fl (7.4-10.4); Platelet Count Result 233 k/mm3 (150-375); Red Blood Count 4.04 M/mm3 (4.2-5.4); Red Cell Distribution Width 13.5 % (11.5-14.5); White Blood Count 6.1 K/mm3 (4.5-10.0)
[2023-10-26 10:41] LABS: Vitamin D 25 Hydroxy 54.1 ng/mL
[2023-10-26 10:49] LABS: Alanine Aminotransferase 14 U/L (6-35); Albumin Level 4.4 g/dL (3.5-5.1); Alkaline Phosphatase 69 U/L (38-126); Anion Gap 8 mmol/L (4-12); Aspartate Amino Transferase 22 U/L (14-36); Bilirubin,Total 0.5 mg/dL (0.2-1.3); Blood Urea Nitrogen 28 mg/dL (7-17); Calcium 9.6 mg/dL (8.4-10.2); Carbon Dioxide 27 mmol/L (22-30); Chloride 104 mmol/L (98-107); Estimated Glomerular Filt Rate 42; Glucose 104 mg/dL (65-110); Potassium 4.4 mmol/L (3.4-5.0); Sodium 139 mmol/L (137-145)
[2023-10-26 11:15] LABS: Thyroid Stimulating Hormone 0.143 uIU/mL (0.465-4.680)
== END 2023-10-26 09:05 | disposition home or self-care (01) ==
PROVIDERS: PCP Nurse Practitioner; Visit Provider Nurse Practitioner
DX: E55.9 Vitamin D deficiency, unspecified (principal); I10 Essential (primary) hypertension; Z79.899 Other long term (current) drug therapy
CPT/HCPCS: 36415; 80053; 82306; 84443; 85027

== ENCOUNTER 2024-04-07 14:31 | Emergency (ER) | payer MEDICARE, BC, SELFPAY ==
[2024-04-07 14:50] VITALS: BP 150/73; PULSE 98; RESP 18; TEMP 36.6; O2SAT 100
--- NOTE | 2024-04-07 15:02 | ED.URI ---
HPI - URI/Sore Throat General Chief Complaint: Upper Respiratory Infection Stated Complaint: Sinus/Headache Time Seen by Provider: 04/07/24 15:02 Source: patient Mode of arrival: ambulatory Limitations: no limitations History of Present Illness HPI Narrative: 88 yo F presents with c/o sinus and nasal congestion, sinus headaches and pressure, PND, irritated throat and sneezing for 2 wks. Concerned for sinus infection. Afebrile. No CP or SOB. All systems reviewed and negative except as noted above. Related Data Home Medications ?Medication ?Instructions ?Recorded ?Confirmed ?Last Taken ?Type brimonidine 0.2 %-timolol 0.5 % drp 04/07/24 Unknown History eye drops prednisolone acetate 1 % eye drp 04/07/24 Unknown History drops,suspension Allergies Allergy/AdvReac Type Severity Reaction Status Date / Time levofloxacin Allergy Unknown hives Verified 04/07/24 14:40 metronidazole Allergy Unknown rash Verified 04/07/24 14:40 Review of Systems Review of Systems: CONSTITUTIONAL: Denies fever, chills, or sweats. EYES: Denies visual changes, redness, or discharge. ENT: Reports rhinorrhea, congestion, postnasal drainage, sinus pressure. Denies sore throat, or otalgia. CARDIOVASCULAR: Denies chest pain, palpitations, or edema. RESPIRATORY: Denies cough or dyspnea. GASTROINTESTINAL: Denies abdominal pain, nausea, vomiting, or diarrhea. GENITOURINARY: Denies dysuria or hematuria. SKIN: Denies rash or itching. MUSCULOSKELETAL: Denies back pain, joint pain, or myalgia. NEUROLOGIC: Denies headache, numbness, or weakness. PSYCHIATRIC: Denies anxiety or depression. All other systems reviewed are negative, except as documented in HPI. [facility] Past Medical History Medical History (Updated 04/08/24 @ 00:00 by Valeriy Orellana) Hiatal hernia Essential (primary) hypertension Gastroesophageal reflux disease Iron deficiency anemia Chronic low back pain Vitamin D deficiency Family History Family History Sibling Patient's sister is in good health Family history of alcoholism Family history of chronic obstructive pulmonary disease Patient's brother is Mother Patient's mother is Father Patient's father is Social History Social History (Reviewed 04/01/23 @ 13:30 by ANNA Dias Smoking status: Never smoker Second hand tobacco smoke exposure: No Alcohol intake: never Substance use: never Substance use type: does not use Lack of Transportation: No Lack of Food: Never True Current Housing: I Have Housing Concerned About Future Housing: No Difficulty Paying Gas/Electric Bills: No Difficulty Paying for Meds: No Currently Unemployed: No Education: Trade/Vocational Certificate Difficulty w/ Childcare or Family Care: No Comments At time of signature, agree with nursing past medical, surgical, social and family history. There is no relevant family history pertinent to the presenting complaint. Exam Narrative: GENERAL: This is a well-nourished, well-developed patient, in no apparent distress. HEAD: normocephalic, atraumatic. EYES: PERRL. Sclera clear/white. Vision is grossly intact. EARS: External ears normal, auditory canals clear and without drainage, TMs normal without perforation. Hearing grossly intact. NOSE: External nose normal with purulent nasal drainage, erythema and swelling to bilateral nares, maxillary sinus tenderness on palpation bilaterally. THROAT: Mucous membranes moist, Erythema postnasal drainage. NECK: Neck supple, non-tender without lymphadenopathy, masses or thyromegaly. CARDIOVASCULAR: Regular rate and rhythm without murmurs, gallops, or rubs. RESPIRATORY: Clear to auscultation. Breath sounds equal bilaterally. No wheezes, rales, or rhonchi. SKIN: warm, Dry, intact with no suspicious lesions or rash, good texture and turgor. NEURO: awake, alert, and oriented to person, place and time. There were no obvious focal neurologic abnormalities. EXTREMITIES: No joint tenderness, effusion, or edema noted. Course Course Level of Care: Express Care Visit Vital Signs Vital signs: Vital Signs Temperature 36.6 C 04/07/24 14:50 Pulse Rate 98 04/07/24 14:50 Respiratory Rate 18 04/07/24 14:50 Blood Pressure 150/73 H 04/07/24 14:50 Pulse Oximetry 100 04/07/24 14:50 Oxygen Delivery Room Air 04/07/24 14:50 Temperature 36.6 C 04/07/24 14:50 Pulse Rate 98 04/07/24 14:50 Respiratory Rate 18 04/07/24 14:50 Blood Pressure 150/73 H 04/07/24 14:50 Pulse Oximetry 100 04/07/24 14:50 Oxygen Delivery Room Air 04/07/24 14:50 reviewed MDM - URI/Sore Throat MDM Narrative Medical decision making narrative: will treat patient for bacterial sinusitis due to duration of symptoms and exam findings. Patient agrees with plan of care. Patient is aware of diagnosis, understands and agrees to treatment plan. Anticipatory guidance given. Patient agrees to follow-up as directed and is aware of reasons to seek care at the emergency department. Portions of this record may have been created with voice recognition software Differential Diagnosis Differential diagnosis: Likely upper respiratory infection, sinusitis, viral infection, influenza and pharyngitis Discharge Plan Discharge Clinical Impression: Acute bacterial sinusitis Patient Disposition: Home, Self-Care Condition: Stable Instructions: Antibiotic Form, Sinusitis (ED) Additional Instructions: take medications as prescribed. Take Tylenol every 6-8 hours as needed for pain and fever. Drink at least 64 oz of water a day. Place cool mist humidifier in bedroom where you sleep. Follow-up with your primary care physician if symptoms are not improving. Patient Language: Estonian Prescriptions: New doxycycline hyclate 100 mg capsule 100 mg PO BID 7 Days Qty: 14 0RF methylprednisolone [Medrol (Leonel)] 4 mg tablets,dose pack See Rx Instructions PO .COMPLEX Qty: 21 0RF Rx Instructions: orally per package directions fluticasone propionate [Flonase Allergy Relief] 50 mcg/actuation spray,suspension 1 spray intranasal BID Qty: 16 0RF Rx Instructions: administer into each nostril No Action prednisolone acetate 1 % drops,suspension brimonidine-timolol 0.2-0.5 % drops lisinopril 20 mg tablet See Rx Instructions .ROUTE .COMPLEX Qty: 90 1RF Dose Instruction: Take 1 tablet by mouth once daily Rx Instructions: Take 1 tablet by mouth once daily omeprazole 20 mg capsule,delayed release(DR/EC) 20 mg PO DAILY Qty: 90 1RF Follow-up/Referrals: Tyrone Caldera APRN [Primary Care Provider] - Time of Disposition: 15:14
== END 2024-04-07 15:20 | disposition home or self-care (01) ==
PROVIDERS: Emergency Provider Nurse Practitioner Family; PCP Nurse Practitioner
DX: J01.90 Acute sinusitis, unspecified (principal); I10 Essential (primary) hypertension; K21.9 Gastro-esophageal reflux disease without esophagitis
CPT/HCPCS: 99211; G0463

== ENCOUNTER 2025-02-25 13:34 | Outpatient (CLI) | payer MEDICARE, BC, SELFPAY ==
[2025-02-25 14:01] LABS: Hematocrit 40.1 % (37.0-47.0); Hemoglobin 12.9 g/dL (12.0-15.0); Mean Corpuscular HGB Conc 32.2 g/dl (32-36); Mean Corpuscular Hemoglobin 30.1 pg (26-34); Mean Corpuscular Volume 93.5 fl (80-100); Platelet Count Result 289 k/mm3 (150-375); Red Blood Count 4.29 M/mm3 (4.2-5.4); White Blood Count 6.7 K/mm3 (4.5-10.0)
[2025-02-25 14:19] LABS: Alanine Aminotransferase 16 U/L (6-35); Albumin Level 4.4 g/dL (3.5-5.1); Alkaline Phosphatase 75 U/L (38-126); Anion Gap 8 mmol/L (4-12); Aspartate Amino Transferase 22 U/L (14-36); Bilirubin,Total 0.5 mg/dL (0.2-1.3); Blood Urea Nitrogen 24 mg/dL (7-17); Calcium 9.4 mg/dL (8.4-10.2); Carbon Dioxide 26 mmol/L (22-30); Chloride 105 mmol/L (98-107); Estimated Glomerular Filt Rate 52; Glucose 115 mg/dL (65-110); Potassium 3.7 mmol/L (3.4-5.0); Sodium 139 mmol/L (137-145); Total Protein 7.3 g/dL (6.3-8.2)
== END 2025-02-25 13:35 | disposition home or self-care (01) ==
PROVIDERS: PCP Nurse Practitioner; Visit Provider Nurse Practitioner
DX: E78.5 Hyperlipidemia, unspecified (principal); I10 Essential (primary) hypertension; E55.9 Vitamin D deficiency, unspecified; K21.9 Gastro-esophageal reflux disease without esophagitis
CPT/HCPCS: 36415; 80053; 82306; 85027